=== PATIENT | male | born 1980 | race Hispanic/Latino ===

== ENCOUNTER 2020-10-07 11:49 | Outpatient (CLI) | payer MEDICARE, MEDICAID ==
--- NOTE | 2020-10-07 12:40 | RAD ---
XR Chest Pa Lat STANDARD HISTORY: Cough COMPARISON: 07/29/2015 FINDINGS: The heart size is normal. The lungs are well expanded without focal areas of consolidation, pneumothorax or pleural effusions. IMPRESSION: No radiographic evidence of acute cardiopulmonary process. Plain radiographs can be falsely negative in the setting of viral pneumonias.
== END 2020-10-07 11:50 | disposition home or self-care (01) ==
LOC: BICRAD 11:49
PROVIDERS: ATTEND Family Medicine
DX: R05 Cough (principal)
CPT/HCPCS: 71046

== ENCOUNTER 2020-11-14 01:39 | Inpatient (IN) | payer MEDICARE, MEDICAID ==
[2020-11-14] MEDS ORDERED: Nitroglycerin 0.4 MG TAB 1 EACH ONE (02:05)
[2020-11-14 02:13] LABS: #Basophils 0.1 thou/uL (0.0-0.2); #Eosinphils 0.4 thou/uL (0.0-0.7); #Lymphocytes 2.4 thou/uL (1.20-3.40); #Monocytes 1.6 thou/uL (0.11-0.59); #Neutrophils 13.1 thou/uL (1.40-6.50); %Basophils 0.4 % (0.0-1.0); %Eosinophils 2.2 % (0.0-10.0); %Lymphocytes 13.8 % (21.0-51.0); %Monocytes 9.3 % (0.0-10.0); %Neutrophils 74.3 % (42.0-75.0); Hemoglobin 15.8 g/dL (14.0-18.0); Mean Corpuscular HGB CONC 33.4 g/dL (32.0-36.0); Mean Corpuscular Hemoglobin 27.4 pg (27.0-31.0); Mean Corpuscular Volume 82.2 fL (78.0-98.0); Mean Platelet Volume 7.6 fL (7.4-10.4); Platelet Count 250 thou/uL (130-400); RBC Distribution Width 12.4 % (11.5-14.5); Red Blood Cell (RBC) Count 5.77 mill/uL (4.70-6.10); White Blood Cell (WBC) Count 17.6 thou/uL (4.8-10.8)
[2020-11-14] MEDS ORDERED: Furosemide 20 MG/2 ML VIAL ONE (02:26)
[2020-11-14 02:38] LABS: ALT (SGPT) 69 U/L (8-55); AST (SGOT) 59 U/L (5-34); Albumin 3.9 g/dL (3.5-5.0); Alkaline Phosphatase 115 U/L (40-110); Anion Gap 16 mmol/L (10-20); BUN (Urea Nitrogen) 12 mg/dL (8.9-20.6); Bilirubin, Total 1.2 mg/dL (0.2-1.2); Calc. Creatinine Clearance 0 mL/min (70-130); Calcium 8.6 mg/dL (7.8-10.44); Carbon Dioxide 22 mmol/L (22-29); Chloride 101 mmol/L (98-107); Globulin 3.9 g/dL (2.4-3.5); Glucose 295 mg/dL (70-105); Potassium 3.7 mmol/L (3.5-5.1); Protein, Total 7.8 g/dL (6.0-8.3); Sodium 135 mmol/L (136-145)
[2020-11-14 02:59] LABS: CKMB 3.4 ng/mL (0-6.6)
[2020-11-14] MEDS ORDERED: cefTRIAXone\\ROCEPHIN 2 GM VIAL ONE (03:12)
[2020-11-14] MEDS ORDERED: Sodium Chloride 0.9% 100 ML ONE (03:12)
[2020-11-14] MEDS ORDERED: Azithromycin 500 MG VIAL ONE (03:54)
[2020-11-14] MEDS ORDERED: hydrALAZINE 20 MG/ML VIAL ONE (03:54)
--- NOTE | 2020-11-14 04:37 | PDOC.HHP ---
Hospitalist HPI Shortness of breath History of Present Illness: 40-year-old male with history of obesity, hypertension on amlodipine/valsartan use but stopped taking medicine since the last 1 month presented because of worsening shortness of breath chest congestion as well as nasal congestion since the last 1 week. He admits to some cough with whitish sputum. He denies any fever or chills. He denies any sick contact. On presentation he was noted with O2 sat in the 80s on room air. He is on supplemental O2 now. He was also admitted with hypertensive urgency with systolic over 190s. EKG shows no ST segment changes. He has been admitted for hypertensive urgency as well as presumed CHF exacerbation Past History: PMHx: Hypertension Obesity PSHx: None FHx: No family history of CAD Social: Admits to 1 pack/day tobacco use, no alcohol or illicit drug use Hospitalist HPI ROS All other systems reviewed; all pertinent +/- noted in HPI/Subj Hospitalist Exam General Appearance: NAD, awake alert General - other findings: Obese middle-aged male, calm, on 2 L nasal cannula Eye: PERRL, anicteric sclera ENT: normocephalic atraumatic, no oropharyngeal lesions Neck: supple, symmetric Heart: RRR, no murmur Respiratory: CTAB, rales Gastrointestinal: soft, non-tender, non-distended Extremities: no cyanosis, no edema, 1+ LE edema Skin: normal turgor, no lesions Neurological: cranial nerve grossly intact, no focal deficits Musculoskeletal: normal tone, normal strength Psychiatric: normal affect, oriented to place Hospitalist Results Result Diagrams: 11/14/20 02:03 11/14/20 02:03 Lab results: Laboratory Last Values WBC 17.6 thou/uL (4.8-10.8) H 11/14/20 02:03 RBC 5.77 mill/uL (4.70-6.10) 11/14/20 02:03 Hgb 15.8 g/dL (14.0-18.0) 11/14/20 02:03 Hct 47.4 % (42.0-52.0) 11/14/20 02:03 MCV 82.2 fL (78.0-98.0) 11/14/20 02:03 MCH 27.4 pg (27.0-31.0) 11/14/20 02:03 MCHC 33.4 g/dL (32.0-36.0) 11/14/20 02:03 RDW 12.4 % (11.5-14.5) 11/14/20 02:03 Plt Count 250 thou/uL (130-400) 11/14/20 02:03 MPV 7.6 fL (7.4-10.4) 11/14/20 02:03 Neutrophils % 74.3 % (42.0-75.0) 11/14/20 02:03 Lymphocytes % 13.8 % (21.0-51.0) L 11/14/20 02:03 Monocytes % 9.3 % (0.0-10.0) 11/14/20 02:03 Eosinophils % 2.2 % (0.0-10.0) 11/14/20 02:03 Basophils % 0.4 % (0.0-1.0) 11/14/20 02:03 Neutrophils # 13.1 thou/uL (1.40-6.50) H 11/14/20 02:03 Lymphocytes # 2.4 thou/uL (1.20-3.40) 11/14/20 02:03 Monocytes # 1.6 thou/uL (0.11-0.59) H 11/14/20 02:03 Eosinophils # 0.4 thou/uL (0.0-0.7) 11/14/20 02:03 Basophils # 0.1 thou/uL (0.0-0.2) 11/14/20 02:03 Sodium 135 mmol/L (136-145) L 11/14/20 02:03 Potassium 3.7 mmol/L (3.5-5.1) 11/14/20 02:03 Chloride 101 mmol/L (98-107) 11/14/20 02:03 Carbon Dioxide 22 mmol/L (22-29) 11/14/20 02:03 Anion Gap 16 mmol/L (10-20) 11/14/20 02:03 BUN 12 mg/dL (8.9-20.6) 11/14/20 02:03 Creatinine 1.12 mg/dL (0.7-1.3) 11/14/20 02:03 Estimated GFR (MDRD) 73 11/14/20 02:03 Glucose 295 mg/dL (70-105) H 11/14/20 02:03 Lactic Acid 2.1 mmol/L (0.5-2.2) 11/14/20 02:02 Calcium 8.6 mg/dL (7.8-10.44) 11/14/20 02:03 Total Bilirubin 1.2 mg/dL (0.2-1.2) 11/14/20 02:03 AST 59 U/L (5-34) H 11/14/20 02:03 ALT 69 U/L (8-55) H 11/14/20 02:03 Alkaline Phosphatase 115 U/L (40-110) H 11/14/20 02:03 CK-MB (CK-2) 3.4 ng/mL (0-6.6) 11/14/20 02:03 Troponin I 0.044 ng/mL (< 0.028) H 11/14/20 02:03 B-Natriuretic Peptide 356.3 pg/mL (0-100) H 11/14/20 02:03 Serum Total Protein 7.8 g/dL (6.0-8.3) 11/14/20 02:03 Albumin 3.9 g/dL (3.5-5.0) 11/14/20 02:03 Globulin 3.9 g/dL (2.4-3.5) H 11/14/20 02:03 Albumin/Globulin Ratio 1.0 g/dL (1.2-2.2) L 11/14/20 02:03 Hospitalist H&P A/P (1) Acute dyspnea Code(s): R06.00 - DYSPNEA, UNSPECIFIED Status: Acute (2) Hypertensive urgency Code(s): I16.0 - HYPERTENSIVE URGENCY Status: Acute (3) Obesity Code(s): E66.9 - OBESITY, UNSPECIFIED Status: Acute Plan: Acute dyspneamay be due to acute pulmonary edema versus Covid pneumonia Chest x-ray with bibasilar infiltrate worrisome for Covid pneumonia We will obtain Covid screening test if negative will also obtain PCR since high suspicion We will empirically start Decadron/zinc/if vomiting/budesonide inhaler Start guaifenesin as needed We will also dose Lasix x1 today Hypertensionuncontrolled, start labetalol since elevated heart rate Obesity weight loss advised DVT prophylaxissubcutaneous Lovenox Advance directivefull code
[2020-11-14] MEDS ORDERED: Ondansetron PF 4 MG/2 ML Vial IVP PRN (04:40)
[2020-11-14] MEDS ORDERED: Bisacodyl 5 MG TAB PO PRN (04:40)
[2020-11-14] MEDS ORDERED: Acetaminophen 325 MG TAB PO PRN (04:40)
[2020-11-14] MEDS ORDERED: GUAIFENESIN SF SOLN 200 MG/10 ML UDCUP PO PRN (04:41)
[2020-11-14] MEDS ORDERED: hydrALAZINE 20 MG/ML VIAL SLOW IVP PRN (04:41)
[2020-11-14] MEDS ORDERED: Ivermectin 3 MG TAB PO SCH (05:00)
[2020-11-14] MEDS: Nicotine 21 MG PATCH TD SCH (05:20)
[2020-11-14 05:24] LABS: Lactic Acid 1.7 mmol/L (0.5-2.2)
[2020-11-14 05:34] LABS: Troponin I 0.044 ng/mL (< 0.028)
[2020-11-14 05:47] LABS: Thyroid Stimulating Hormone 1.4751 uIU/mL (0.35-4.94)
[2020-11-14 06:30] LABS: Ferritin 251.8 ng/mL (22-322)
[2020-11-14] MEDS ORDERED: Budesonide 0.25 MG/2 ML NEB INH SCH (06:30)
[2020-11-14 06:42] LABS: SARS-CoV-2 NAA Rapid Test DETECTED (NotDetected)
[2020-11-14 08:35] LABS: Troponin I 0.045 ng/mL (< 0.028)
--- NOTE | 2020-11-14 08:39 | RAD ---
XR Chest 1 View Portable History: Chest pain Comparison: Radiograph October 07, 2020 Findings: Mild patchy peripheral and perihilar opacities. No pneumothorax. Heart size is normal. No a cute osseous abnormality. Impression: Findings of Covid pneumonia.
[2020-11-14] MEDS ORDERED: Amlodipine 10 MG TAB PO SCH (09:15)
[2020-11-14] MEDS ORDERED: Metoprolol Tartrate 25 MG TAB PO SCH ×2 (09:15→21:00)
[2020-11-14] MEDS: Famotidine 20 MG TAB PO SCH ×2 (09:30→20:58)
[2020-11-14] MEDS: Zinc Sulfate 220 MG CAP PO SCH (09:32)
[2020-11-14] MEDS: guaiFENesin ER 600 MG TAB PO SCH ×2 (09:33→20:58)
[2020-11-14] MEDS: Enoxaparin Sodium 40 MG/0.4 ML SYRINGE SC SCH (09:33)
[2020-11-14] MEDS: Furosemide 40 MG/4 ML VIAL SLOW IVP SCH (11:51)
[2020-11-14] MEDS: HumaLOG 300 UNITS/3 ML VIAL SC PRN ×2 (11:51→18:13)
[2020-11-14] MEDS: Mometasone 100 MCG/PUFF (1 INHALER) INH SCH (17:07)
[2020-11-14] MEDS ORDERED: FLU VACC QS2020-21(6MOS UP)/PF 60 MCG/0.5 ML SYRINGE IM ONE (18:00)
[2020-11-14] MEDS ORDERED: HumaLOG 300 UNITS/3 ML VIAL SC PRN (21:43)
[2020-11-15] MEDS ORDERED: cefTRIAXone\\ROCEPHIN 1 GM in Sodium Chloride 0.9% 100 ML IVPB SCH (03:00)
[2020-11-15 05:26] LABS: ALT (SGPT) 52 U/L (8-55); AST (SGOT) 25 U/L (5-34); Albumin 3.5 g/dL (3.5-5.0); Alkaline Phosphatase 103 U/L (40-110); Anion Gap 16 mmol/L (10-20); BUN (Urea Nitrogen) 18 mg/dL (8.9-20.6); Bilirubin, Total 0.8 mg/dL (0.2-1.2); Calc. Creatinine Clearance 0 mL/min (70-130); Calcium 8.9 mg/dL (7.8-10.44); Carbon Dioxide 25 mmol/L (22-29); Chloride 99 mmol/L (98-107); Globulin 3.8 g/dL (2.4-3.5); Glucose 262 mg/dL (70-105); Magnesium 1.9 mg/dL (1.6-2.6); Protein, Total 7.3 g/dL (6.0-8.3); Sodium 136 mmol/L (136-145)
[2020-11-15] MEDS: Nicotine 21 MG PATCH TD SCH ×2 (05:57→06:13)
[2020-11-15] MEDS: HumaLOG 300 UNITS/3 ML VIAL SC PRN ×2 (05:58→12:44)
[2020-11-15] MEDS: Mometasone 100 MCG/PUFF (1 INHALER) INH SCH (06:18)
[2020-11-15] MEDS ORDERED: metFORMIN 500 MG TAB PO SCH (08:00)
[2020-11-15] MEDS ORDERED: Metoprolol Tartrate 25 MG TAB PO SCH (09:00)
[2020-11-15] MEDS ORDERED: Amlodipine 10 MG TAB PO SCH (09:00)
[2020-11-15] MEDS: guaiFENesin ER 600 MG TAB PO SCH (09:04)
[2020-11-15] MEDS: Famotidine 20 MG TAB PO SCH (09:04)
[2020-11-15] MEDS: Zinc Sulfate 220 MG CAP PO SCH (09:05)
[2020-11-15] MEDS: Enoxaparin Sodium 40 MG/0.4 ML SYRINGE SC SCH (09:05)
[2020-11-15] MEDS: Furosemide 40 MG/4 ML VIAL SLOW IVP SCH (09:05)
[2020-11-15 09:26] LABS: #Basophils 0.1 thou/uL (0.0-0.2); #Eosinphils 0.5 thou/uL (0.0-0.7); #Lymphocytes 2.1 thou/uL (1.20-3.40); #Monocytes 1.1 thou/uL (0.11-0.59); %Basophils 0.8 % (0.0-1.0); %Eosinophils 5.2 % (0.0-10.0); %Lymphocytes 21.5 % (21.0-51.0); %Neutrophils 61.4 % (42.0-75.0); Hemoglobin 15.8 g/dL (14.0-18.0); Mean Corpuscular Hemoglobin 28.3 pg (27.0-31.0); Mean Corpuscular Volume 83.3 fL (78.0-98.0); Mean Platelet Volume 7.5 fL (7.4-10.4); Platelet Count 224 thou/uL (130-400); RBC Distribution Width 12.3 % (11.5-14.5); Red Blood Cell (RBC) Count 5.58 mill/uL (4.70-6.10); White Blood Cell (WBC) Count 9.8 thou/uL (4.8-10.8)
[2020-11-15 12:47] VITALS: BP 129/92; TEMP 97.5
--- NOTE | 2020-11-16 14:58 | PQF ---
CLINICAL DOCUMENTATION CLARIFICATION FORM: Dear DR. Clifton FERRO Date: 11/16/20 1310 Please exercise your independent, professional judgment in responding to the clarification form. Clinical indicators are provided on the bottom of this form for your review. Please check appropriate box(es): [ ] Acute respiratory failure [ ] with hypoxia [ ] with hypercapnia [ ] Dyspnea without Acute Respiratory Failure [ ] Other diagnosis [ ] Unable to determine Present on Admission [ ] Yes [ ] No [ ] Unable to determine For continuity of documentation, please document condition throughout progress notes and discharge summary. Thank You. To be completed by CDI/Coding staff for physician review: CLINICAL INDICATORS - SIGNS / SYMPTOMS / LABS/ RESULTS AND LOCATION IN MR ED: New onset CHF; HTN; pulmonary edema P 111-129 RR 30-48 T 98.6 ORAL O2 SAT 95-100% ON RA BP 197/124, 174/120 Productive cough since last ....pt reports that earlier this week he has been experiencing worsening SOB as well as chest pain ...pt is sweating upon arrival Respiratory/Chest: signs of distress, tripod positioning, in mild distress Presented with cough, worsening shortness of breath, on presentation he was noted with O2 sat in the 80s on room air. He is on supplemental o2 now. (H&P/[place]) 11/14 RISKS FACTORS / RESULTS AND LOCATION IN MR Acute dyspnea, pulmonary edema vs covid pneumonia ( H&P/[place]) 11/14 TREATMENT / RESULTS AND LOCATION IN MR Lasix 40 mg IV. (11/15) Thank you! CDS Signature: Meeta Wyman, Phone #: [phone] Date: 11/16/20 1337 This is a permanent part of the Medical Record [facility]
--- NOTE | 2020-11-16 15:22 | PQF ---
CLINICAL DOCUMENTATION CLARIFICATION FORM: Dear Dr. Buck FERRO Date: 11/16/2020 3750 Please exercise your independent, professional judgment in responding to the clarification form. Clinical indicators are provided on the bottom of this form for your review. Please check appropriate box(es): CONGESTIVE HEART FAILURE: A. ACUITY [ ] Acute [ ] Acute on Chronic [ ] Chronic B. TYPE: [ ] Systolic / HFrEF [ ] Diastolic / HFpEF [ ] Combined Systolic / Diastolic [ ] Acute Pulmonary edema [ ] No CHF or Acute Pulmonary Edema [ ] Other diagnosis [ ] Unable to determine In addition, please specify: Present on Admission (POA): [ ] Yes [ ] No [ ] Unable to determine For continuity of documentation, please document condition throughout progress notes and discharge summary. Thank You. To be completed by CDI/Coding staff for physician review: CLINICAL INDICATORS - SIGNS / SYMPTOMS / LABS / RESULTS AND LOCATION IN EMR ED: New onset CHF; HTN; pulmonary edema P 111-129 RR 30-48 T 98.6 ORAL O2 SAT 95-100% ON RA BP 197/124, 174/120 Productive cough since last ....pt reports that earlier this week he has been experiencing worsening SOB as well as chest pain...pt is sweating upon arrival// Respiratory/Chest: signs of distress, tripod positioning, in mild distress( 11/14) Chest x ray with bibasilar infiltrate worrisome for covid pneumonia. 11/14 BNP 11/14 356.3 RISKS FACTORS / RESULTS AND LOCATION IN EMR Presumed CHF exacerbation, Hypertensive urgency (H&P/[place]) 11/14 TREATMENTS / RESULTS AND LOCATION IN EMR Lasix IV 40 MG IV Thank you! CDS Signature: Meeta Wyman RN Phone #: [phone] Date: 11/16/2020 This is a permanent part of the Medical Record [facility]
--- NOTE | 2020-11-16 15:47 | PQF ---
CLINICAL DOCUMENTATION CLARIFICATION FORM: Dear DR. Buck FERRO Date: 11/16/2020 5359 Please exercise your independent, professional judgment in responding to the clarification form. Clinical indicators are provided on the bottom of this form for your review. Please check appropriate box(es): [ ] Type 2 UT (T2MI) secondary to: [ ] COVID -19 Pneumonia. [ ] Hypertensive Urgency [ ] Eevated Troponin I- insignificant lab value [ ] Other: [ ] Takotsubo syndrome [ ] Other diagnosis [ ] Unable to determine In addition, please specify: Present on Admission (POA): [ ] Yes [ ] No [ ] Unable to determine For continuity of documentation, please document condition throughout progress notes and discharge summary. Thank You. To be completed by CDI/Coding staff for physician review: CLINICAL INDICATORS - SIGNS / SYMPTOMS / LABS / RESULTS AND LOCATION IN EMR LABS: TROPONIN I. 0.044. > 0.044. > 0.045 ED: New onset CHF; HTN; pulmonary edema, P 111-129, RR 30-48, T 98.6 ORAL, O2 SAT 95-100% ON RA, BP 197/124, 174/120, Productive cough since last ....pt reports that earlier this week he has been experiencing worsening SOB as well as chest pain,...pt is sweating upon arrival, Respiratory/Chest: signs of distress, tripod positioning, in mild distress (ED Record) RISK/ RESULTS AND LOCATION IN EMR Pulmonary edema, CHF ( ED Report) 11/14 TREATMENTS / RESULTS AND LOCATION IN EMR Nitroglycerin SL Serial troponin I ( 11/14) CDS Signature: Meeta Wyman RN. Phone #: [phone] Date: 11/16/20 1200 This is a permanent part of the Medical Record [facility]
--- NOTE | 2020-11-22 12:00 | PDOC.DS.DS ---
Provider Date of Admission: 11/14/20 04:18 Date of Discharge: 11/15/20 Admitting Provider: Kimberly Hines MD Primary Care Physician: Hawk Washington MD Course Hospital Course: this patient is a 40-year-old male who presented via the emergency department. Patient had a history of hypertension and obesity. He had stopped taking his medicines month prior to admission. Patient reported some nasal and chest congestion. He reported symptoms of cough and intermittent shortness of breath over a 3 month period. His workup was notable for a chest x-ray with bilateral groundglass infiltrate concerning for possible covert versus pulmonary edema.he had a BNP of 356. It was reported that he had some hypoxia although all d ocumentation from his ER presentation and subsequent indicated he had no evidence of hypoxia and was satting 100% on room air. Patient was hypertensive with systolic over 190s. It was felt the patient may have some symptomatic hypertension/hypertensive urgency. Patient was subsequently treated with antihypertensives. Also of note the patient had elevated blood sugars in the diabetic range. Patient did not have any history of diabetes mellitus. He was also noted to have slight elevation of his liver enzymes. Ultimately the patient's blood pressure was improved with oral medications similar to what he had taken previously. He remained relatively asymptomatic from the co-visit and had no hypoxia. No treatment was therefore indicated. He was not able to get an echocardiogram because of his [place] at diagnosis. His A1c came back at 12 indicating more chronic hyperglycemia and type 2 diabetes. his troponins were indeterminate and remained flat. It was felt these were likely due to hypertension not specifically ischemia. Patient was eager to discharge and was felt to be stable to do so for further outpatient workup and management. He fully understands the need to stay compliant with medications and follow up. He will need to see his PCP for ongoing management of the DM and HTN meds. He will need monitoring of the LFT's and and echo when he is off covid precaustions. Re viewed Covid precautions and isolation in detail. All his questions were answered. Resuscitation Status: 11/14/20 04:40 Resuscitation Status Routine Resuscitation Status: FULL: Full Resuscitation Lab Results: 11/15/20 09:06 11/15/20 04:38 Microbiology - Entire Visit 11/14/20 03:32 Venous blood - Left Arm Blood Culture - Final NO GROWTH IN 5 DAYS 11/14/20 03:32 Venous blood - Right Hand Blood Culture - Final NO GROWTH IN 5 DAYS Vitals: Weight Weight 4 oz Physical Exam: The patient was seen and examined on the day of discharge. General Appearance: NAD, awake alert General - other findings: obese Cardiovascular: RRR, no murmur, no gallops, no rubs Gastrointestinal: soft, non-tender, non-distended, normal bowel sounds Extremities: no cyanosis, no clubbing, no edema Skin: normal turgor Musculoskeletal: normal tone, normal strength, no muscle wasting PSYCH: normal affect, normal behavior, A&O x 3 Problem (1) Pneumonia due to COVID-19 virus Code(s): U07.1 - COVID-19; J12.82 - PNEUMONIA DUE TO CORONAVIRUS DISEASE 2019 Status: Acute (2) Non-compliance Code(s): Z91.19 - PATIENT'S NONCOMPLIANCE W OTH MEDICAL TREATMENT AND REGIMEN Status: Acute (3) Hypertensive urgency Code(s): I16.0 - HYPERTENSIVE URGENCY Status: Acute (4) New onset type 2 diabetes mellitus Code(s): E11.9 - TYPE 2 DIABETES MELLITUS WITHOUT COMPLICATIONS Status: Acute (5) Obesity Code(s): E66.9 - OBESITY, UNSPECIFIED Status: Acute (6) Transaminitis Code(s): R74.01 - ELEVATION OF LEVELS OF LIVER TRANSAMINASE LEVELS Status: Acute Plan Prescriptions: metFORMIN [Glucophage] 500 mg PO BID-WM #60 tab Metoprolol Tartrate [Lopressor] 25 mg PO BID #60 tab Amlodipine [Norvasc] 10 mg PO DAILY #30 tab Home Medications: Medication Instructions Recorded Confirmed Type Amlodipine [Norvasc] 10 mg PO DAILY #30 tab 11/15/20 Rx Metoprolol Tartrate [Lopressor] 25 mg PO BID #60 tab 11/15/20 Rx metFORMIN [Glucophage] 500 mg PO BID-WM #60 tab 11/15/20 Rx Allergies: No Known Drug Allergies Allergy (Verified 11/14/20 04:59) PER ER NOTES Discharge Instructions:: Avoid excess carbohydrates. Avoid sugars and desserts. Stay hydrated with water. Activity:: Activity as Tolerated Nourishment:: Diabetic Diet Referrals: Hawk Washington MD [Primary Care Provider] - Disposition: HOME Quality CORE MEASURES:: N/A
== END 2020-11-15 16:50 | disposition home or self-care (01) | DRG 177 ==
LOC: ERS 01:39 → ERHOLD 04:18 → 2SW 08:52
PROVIDERS: ADMIT Internal Medicine; ATTEND Internal Medicine
PROC: 8E0ZXY6 Isolation (ICD-10-PCS; principal; 2020-11-14)
DX: U07.1 COVID-19 (principal); J12.82 Pneumonia due to coronavirus disease 2019; I16.0 Hypertensive urgency; I10 Essential (primary) hypertension; F17.210 Nicotine dependence, cigarettes, uncomplicated; E66.9 Obesity, unspecified; E11.65 Type 2 diabetes mellitus with hyperglycemia; R74.01 Elevation of levels of liver transaminase levels; Z91.19 Patient's noncompliance with other medical treatment and regimen
CPT/HCPCS: 0240U; 36415; 36416; 71045; 80053; 82553; 82728; 83036; 83605; 83735; 83880; 84443; 84484; 85025; 86140; 87040; 93005; 96365; 96367; 96375; J0360; J0456; J0696; J1650; J1815; J1940; J3490

== ENCOUNTER 2022-11-12 18:59 | Inpatient (IN) | payer OTHER, MEDICAID ==
[~2022-11-12 18:59] MED LIST: Iopamidol-370 76% 500 ML 1 ML ONE
[2022-11-12] MEDS ORDERED: Lidocaine 1% w/Epinephrine 1:100K 20 ML VIAL ONE (19:28)
[2022-11-12 20:44] LABS: Bacteria/HPF None Seen HPF (None Seen); Bilirubin Negative (Negative); Blood, Urine Negative (Negative); Clarity Clear (Clear); Glucose, Urine (Dipstick) Greater than 1000 mg/dL (Negative); Ketone, Urine 80 mg/dL (Negative); Leukocyte Negative Leu/uL (Negative); Nitrite Negative (Negative); Protein, Urine (Dipstick) 50 mg/dL (Neg-Trace); RBC/HPF 0-3 HPF (0-3); Specific Gravity, Urine 1.043 (1.002-1.036); Squamous Epithelial 0-3 HPF (0-3); Urobilinogen Normal mg/dL (Less than 2); WBC/HPF 0-3 HPF (0-3); pH, Urine 5.5 (5.0-9.0)
[2022-11-12 20:50] LABS: Amphetamine Not Detected (NotDetected); Barbiturates Screen Not Detected (NotDetected); Benzodiazepine Screen Not Detected (NotDetected); Cocaine Metabolite Screen Not Detected (NotDetected); Methadone Not Detected (NotDetected); Methamphetamine Not Detected (NotDetected); Opiate Screen Not Detected (NotDetected); Oxycodone Screen Not Detected (NotDetected); Phencyclidine (PCP) Not Detected (NotDetected); THC/Cannabinoid Screen Detected (NotDetected); Tricyclic Screen Not Detected (NotDetected)
[2022-11-12 21:11] LABS: Hemoglobin 16.2 g/dL (14.0-18.0); Mean Corpuscular HGB CONC 33.7 g/dL (32.0-36.0); Mean Corpuscular Hemoglobin 28.2 pg (27.0-31.0); Mean Corpuscular Volume 83.9 fl (78.0-98.0); Mean Platelet Volume 7.7 fL (7.4-10.4); Platelet Count 269 10x3/uL (130-400); Red Blood Cell (RBC) Count 5.75 mill/uL (4.70-6.10); White Blood Cell (WBC) Count 22.6 10x3/uL (4.8-10.8)
[2022-11-12] MEDS ORDERED: Sulfameth/Trimethoprim DS 800-160mg TAB ONE (21:22)
[2022-11-12] MEDS ORDERED: Acetaminophen 500 MG TAB ONE (21:22)
[2022-11-12] MEDS ORDERED: Vancomycin 1 GM/200 ML (FROZEN) BAG ONE (21:22)
[2022-11-12] MEDS ORDERED: Piperacillin/Tazobactam 3.375 GM VIAL ONE (21:22)
[2022-11-12 21:25] LABS: Band 13 % (5-11); Eosinophils 1 % (0-10); Lymphocytes 7 % (21-51); MDiff Complete? YES; Monocytes 17 % (0-10); Neutrophil 59 % (42-75); Platelet Morphology Comment Appears Adequate; RBC Morphology Normal; Reactive Lymphocytes 3 % (0-10)
[2022-11-12 21:28] LABS: ALT (SGPT) 12 U/L (8-55); AST (SGOT) 8 U/L (5-34); Albumin 3.8 g/dL (3.5-5.0); Alkaline Phosphatase 133 U/L (40-110); Anion Gap 19 mmol/L (10-20); BUN (Urea Nitrogen) 9 mg/dL (8.9-20.6); Bilirubin, Total 0.7 mg/dL (0.2-1.2); CK (CPK) 61 U/L (30-200); Calc. Creatinine Clearance 0 mL/min (70-130); Calcium 9.4 mg/dL (7.8-10.44); Carbon Dioxide 22 mmol/L (22-29); Chloride 98 mmol/L (98-107); Estimated GFR 78; Globulin 3.9 g/dL (2.4-3.5); Glucose 344 mg/dL (70-105); Potassium 3.7 mmol/L (3.5-5.1); Protein, Total 7.7 g/dL (6.0-8.3); Sodium 135 mmol/L (136-145)
[2022-11-12] MEDS ORDERED: Morphine 4 MG/ML VIAL ONE (21:50)
[2022-11-12 22:13] LABS: Hemoglobin A1c 13.7 % (4.0-6.0)
[2022-11-12] MEDS ORDERED: Dextrose 5% in Water 1,000 ML IV PRN (22:22)
[2022-11-12] MEDS ORDERED: Dextrose 50% Abboject 50 ML SYRINGE SLOW IVP PRN (22:22)
[2022-11-12] MEDS ORDERED: HumaLOG 300 UNITS/3 ML VIAL SC PRN ×2 (22:22)
[2022-11-12] MEDS ORDERED: Insulin Glargine 30 UNITS/0.3 ML VIAL SC SCH (22:41)
[2022-11-13] MEDS: Lactated Ringer's 1,000 ML IV SCH ×3 (00:01→17:03)
[2022-11-13] MEDS: cefTRIAXone\\ROCEPHIN 1 GM in Sodium Chloride 0.9% 100 ML IVPB SCH ×2 (00:02→21:25)
[2022-11-13 00:03] LABS: Lactic Acid 1.2 mmol/L (0.5-2.2)
[2022-11-13 03:11] LABS: SARS-CoV-2 NAA Rapid Test Not Detected (NotDetected)
[2022-11-13 03:14] VITALS: BMI 38.2
[2022-11-13] MEDS: Vancomycin 1.5 GRAM/300 ML BAG 1.5 GM in Premix Bag 1 BAG IVPB SCH ×2 (05:47→17:03)
[2022-11-13 06:16] LABS: Anion Gap 13 mmol/L (10-20); BUN (Urea Nitrogen) 11 mg/dL (8.9-20.6); Calc. Creatinine Clearance 129 mL/min (70-130); Calcium 9.3 mg/dL (7.8-10.44); Carbon Dioxide 22 mmol/L (22-29); Estimated GFR 86; Glucose 315 mg/dL (70-105); Potassium 4.2 mmol/L (3.5-5.1); Sodium 134 mmol/L (136-145)
[2022-11-13 06:32] LABS: Band 4 % (5-11); Hemoglobin 15.3 g/dL (14.0-18.0); Lymphocytes 4 % (21-51); MDiff Complete? YES; Mean Corpuscular HGB CONC 33.1 g/dL (32.0-36.0); Mean Corpuscular Hemoglobin 28.2 pg (27.0-31.0); Mean Corpuscular Volume 84.9 fl (78.0-98.0); Mean Platelet Volume 7.8 fL (7.4-10.4); Monocytes 16 % (0-10); Neutrophil 74 % (42-75); Platelet Count 249 10x3/uL (130-400); Platelet Morphology Comment Appears Adequate; RBC Distribution Width 12.1 % (11.5-14.5); RBC Morphology Normal; Reactive Lymphocytes 2 % (0-10); Red Blood Cell (RBC) Count 5.44 mill/uL (4.70-6.10); White Blood Cell (WBC) Count 26.6 10x3/uL (4.8-10.8)
[2022-11-13 07:04] LABS: Chloride 103 mmol/L (98-107)
[2022-11-13] MEDS: Amlodipine 10 MG TAB PO SCH ×2 (08:50→12:11)
[2022-11-13] MEDS: metFORMIN 500 MG TAB PO SCH ×3 (08:50→17:03)
[2022-11-13] MEDS: Valsartan 80 MG TAB PO SCH ×2 (08:52→12:10)
[2022-11-13] MEDS: Triamterene/Hydrochlorothiazide 37.5 mg/25 mg Tablet PO SCH ×2 (08:52→12:11)
[2022-11-13] MEDS ORDERED: VANCOMYCIN IVPB SCH (09:00)
[2022-11-13] MEDS: Acetaminophen 325 MG TAB PO PRN ×3 (09:05→23:35)
[2022-11-13] MEDS: HumaLOG 300 UNITS/3 ML VIAL SC PRN ×2 (09:05→15:37)
[2022-11-13] MEDS ORDERED: Insulin Glargine 30 UNITS/0.3 ML VIAL SC SCH ×3 (21:00→22:22)
[2022-11-14] MEDS: HumaLOG 300 UNITS/3 ML VIAL SC PRN ×2 (06:10→11:51)
[2022-11-14] MEDS: Vancomycin 1.5 GRAM/300 ML BAG 1.5 GM in Premix Bag 1 BAG IVPB SCH (06:11)
[2022-11-14] MEDS: Acetaminophen 325 MG TAB PO PRN ×2 (06:15→11:49)
[2022-11-14 06:19] LABS: Vancomycin, Trough Less than 1.1 ug/mL
[2022-11-14 06:24] LABS: Band 5 % (5-11); Lymphocytes 6 % (21-51); MDiff Complete? YES; Monocytes 10 % (0-10); Neutrophil 79 % (42-75); Platelet Morphology Comment Appears Adequate; RBC Morphology Normal
[2022-11-14 06:25] LABS: Hemoglobin 15.3 g/dL (14.0-18.0); Mean Corpuscular HGB CONC 33.4 g/dL (32.0-36.0); Mean Corpuscular Hemoglobin 27.9 pg (27.0-31.0); Mean Corpuscular Volume 83.8 fl (78.0-98.0); Mean Platelet Volume 7.5 fL (7.4-10.4); Platelet Count 279 10x3/uL (130-400); RBC Distribution Width 11.9 % (11.5-14.5); Red Blood Cell (RBC) Count 5.48 mill/uL (4.70-6.10); White Blood Cell (WBC) Count 22.1 10x3/uL (4.8-10.8)
[2022-11-14 06:30] LABS: Anion Gap 17 mmol/L (10-20); BUN (Urea Nitrogen) 12 mg/dL (8.9-20.6); Calc. Creatinine Clearance 153 mL/min (70-130); Calcium 9.6 mg/dL (7.8-10.44); Carbon Dioxide 22 mmol/L (22-29); Chloride 99 mmol/L (98-107); Estimated GFR 105; Glucose 289 mg/dL (70-105); Potassium 3.7 mmol/L (3.5-5.1); Sodium 134 mmol/L (136-145)
[2022-11-14] MEDS: Valsartan 80 MG TAB PO SCH (08:18)
[2022-11-14] MEDS: metFORMIN 500 MG TAB PO SCH ×2 (08:18→16:35)
[2022-11-14] MEDS: Triamterene/Hydrochlorothiazide 37.5 mg/25 mg Tablet PO SCH (08:19)
[2022-11-14] MEDS: Amlodipine 10 MG TAB PO SCH (08:19)
[2022-11-14] MEDS ORDERED: Ketorolac Tromethamine 30 MG/ML VIAL IVP PRN (12:11)
[2022-11-14 12:22] LABS: Vancomycin, Random Less than 1.1 ug/mL (See Comment)
[2022-11-14 17:19] VITALS: BP 163/123; TEMP 97
[2022-11-14] MEDS ORDERED: Insulin Glargine 30 UNITS/0.3 ML VIAL SC SCH (21:00)
== END 2022-11-14 16:50 | disposition home or self-care (01) | DRG 872 ==
LOC: ERS 18:59 → SJJU 20:27
PROVIDERS: ADMIT Student in an Organized Health Care Education/Training Program; ATTEND Student in an Organized Health Care Education/Training Program
PROC: 0H96XZZ Drainage of Back Skin, External Approach (ICD-10-PCS; principal; 2022-11-12)
PROC: 3E03329 Introduction of Other Anti-infective into Peripheral Vein, Percutaneous Approach (ICD-10-PCS; 2022-11-12)
DX: A41.9 Sepsis, unspecified organism (principal); L02.212 Cutaneous abscess of back [any part, except buttock and flank]; E66.9 Obesity, unspecified; I10 Essential (primary) hypertension; F17.210 Nicotine dependence, cigarettes, uncomplicated; K21.9 Gastro-esophageal reflux disease without esophagitis; Z20.822 Contact with and (suspected) exposure to COVID-19; E11.65 Type 2 diabetes mellitus with hyperglycemia; L02.222 Furuncle of back [any part, except buttock and flank]; Z83.3 Family history of diabetes mellitus; Z79.899 Other long term (current) drug therapy; Z98.890 Other specified postprocedural states; Z68.38 Body mass index [BMI] 38.0-38.9, adult; Z71.6 Tobacco abuse counseling
CPT/HCPCS: 10060; 36415; 36416; 71260; 80048; 80053; 80202; 80306; 81003; 81015; 82550; 83036; 83605; 85025; 87040; 87077; 87186; 93005; 96365; 96375; 97139; J0696; J1650; J1815; J1885; J2270; J2543; J3370; J3370-JW; J3490; J7120; Q9967

== ENCOUNTER 2022-11-29 09:11 | Outpatient (CLI) | payer MEDICAID, OTHER | END 2022-11-29 09:12 | disposition home or self-care (01) | LOC: DTY/OP 09:11 | PROVIDERS: ATTEND Student in an Organized Health Care Education/Training Program | DX: E11.65 Type 2 diabetes mellitus with hyperglycemia (principal) | CPT/HCPCS: 97802 ==